=== PATIENT | male | born 1970 | race African-American/Black ===

== ENCOUNTER 2017-10-12 09:37 | Emergency (ER) | payer OTHER ==
[~2017-10-12] VITALS: Ht 177.8 cm; Wt 99.8 kg
[~2017-10-12 09:37] MED LIST: NOHOMEMEDS
[2017-10-12 10:27] LABS: HEMATOCRIT 37.3 % (38.0-50.0); HEMOGLOBIN 12.7 G/DL (12.5-16.6); MCH 30.2 PG (29.0-34.0); MCV 88.8 FL (86-99); PLATELET COUNT 262 K/uL (156-360); RBC DIS.WIDTH-CV 12.5 % (11.8-14.6); RBC DIS.WIDTH-SD 40.7 % (39-53); WHITE BLOOD COUNT 4.7 K/uL (4.1-10.2)
[2017-10-12 10:41] LABS: CHLORIDE 107 mEq/L (99-109); POTASSIUM 3.9 mEq/L (3.7-5.4); SODIUM 138 mEq/L (136-147)
[2017-10-12 10:42] LABS: GLUCOSE 109 mg/dL (70-99)
[2017-10-12 10:46] LABS: GFR ESTIMATE (CALCULATED) > 59 mL/min/ (58.99-99999)
[2017-10-12 10:47] LABS: UREA NITROGEN (BUN) 15 mg/dL (9-23)
[2017-10-12 10:54] LABS: TROP-I INTERPRETATION NEGATIVE; TROPONIN-I < 0.01 ng/mL (0.0-0.30)
[2017-10-12 11:42] VITALS: BP 111/64
== END 2017-10-12 11:56 | disposition home or self-care (01) ==
LOC: EME 09:37
PROVIDERS: Nurse Practitioner Family
DX: R07.9 Chest pain, unspecified (principal); F43.9 Reaction to severe stress, unspecified; M54.9 Dorsalgia, unspecified; R20.0 Anesthesia of skin; R00.1 Bradycardia, unspecified; F17.200 Nicotine dependence, unspecified, uncomplicated; Z71.6 Tobacco abuse counseling
CPT/HCPCS: 71046; 80048; 84484; 85027; 93005; 99281; 99284